=== PATIENT | male | born 1985 | race Caucasian/White ===

== ENCOUNTER 2018-05-03 13:33 | Emergency (ER) | payer MEDICAID ==
[2018-05-03 13:47] VITALS: BP 141/78
--- NOTE | 2018-05-03 14:09 | EDM.PDOC ---
ED HPI GENERAL MEDICAL PROBLEM - General Chief Complaint: General Stated Complaint: THROAT SWELLING Time Seen by Provider: 05/03/18 13:40 Source of Information: Reports: Patient History Limitations: Reports: No Limitations - History of Present Illness INITIAL COMMENTS - FREE TEXT/NARRATIVE: Patient comes into the emergency department with complaints of a sore throat. This been going on for approximately one week. He did have an Upper GI with stretching completed approximately one month ago. Patient states approximately one week ago he started having a sore throat. He denies cough, nausea, vomiting , or fever. He states it feels like razor blades when swallowing. Also states that he has at breath. Denies being around other individuals who have been ill. Onset: Gradual Quality: Reports: Other Severity: Mild Improves with: Reports: None Worsens with: Reports: None Context: Reports: Activity Associated Symptoms: Reports: No Other Symptoms Throat Pain Score (Numeric/FACES): 5 - Related Data Allergies Allergy/AdvReac Type Severity Reaction Status Date / Time morphine Allergy Nausea and Verified 05/03/18 13:47 Vomiting mushroom Allergy Nausea and Verified 05/03/18 13:47 Vomiting Penicillins Allergy Difficulty Verified 05/03/18 13:47 Breathing venom-honey bee Allergy Anaphylactic Verified 05/03/18 13:47 [bee venom (honey bee)] Shock bee stings Allergy Anaphylactic Uncoded 03/08/18 23:28 Shock heroin Allergy Cardiac Uncoded 03/08/18 23:28 Arrest Home Meds: Home Meds Acetaminophen [Tylenol] 650 mg PO Q4H PRN 03/08/18 [History] Albuterol [Ventolin HFA] 1 inhaler INH ASDIRECTED PRN 05/03/18 [History] Omeprazole 1 tab PO BID 05/03/18 [History] Past Medical History HEENT History: Reports: Other (See Below) Other HEENT History: left eye deviation Gastrointestinal History: Reports: Other (See Below) Other Gastrointestinal History: colitis. cancer Neurological History: Reports: Head Trauma, Seizure Psychiatric History: Reports: Bipolar, Psych Hospitalization(s), Schizophrenia Oncologic (Cancer) History: Reports: Colon - Past Surgical History Head Surgeries/Procedures: Reports: None GI Surgical History: Reports: Other (See Below) Other GI Surgeries/Procedures: bowel resection Musculoskeletal Surgical History: Reports: Other (See Below) Oncologic Surgical History: Reports: Other (See Below) Other Oncologic Surgeries/Procedures: bowel resection Dermatological Surgical History: Reports: None Social & Family History - Family History Family Medical History: Noncontributory - Tobacco Use Smoking Status *Q: Current Every Day Smoker Years of Tobacco use: 22 Packs/Tins Daily: 0.5 - Caffeine Use Caffeine Use: Reports: Coffee, Soda - Alcohol Use Days Per Week of Alcohol Use: 7 Number of Drinks Per Day: 2 Total Drinks Per Week: 14 - Recreational Drug Use Recreational Drug Use: No ED ROS GENERAL - Review of Systems Review Of Systems: See Below Constitutional: Reports: No Symptoms HEENT: Reports: No Symptoms Respiratory: Reports: No Symptoms Cardiovascular: Reports: No Symptoms Endocrine: Reports: No Symptoms GI/Abdominal: Reports: No Symptoms : Reports: No Symptoms Musculoskeletal: Reports: No Symptoms Skin: Reports: No Symptoms Neurological: Reports: No Symptoms Psychiatric: Reports: No Symptoms Hematologic/Lymphatic: Reports: No Symptoms Immunologic: Reports: No Symptoms ED EXAM, GENERAL - Physical Exam Exam: See Below Exam Limited By: No Limitations General Appearance: Alert, WD/WN, No Apparent Distress Eye Exam: Bilateral Eye: EOMI, PERRL Ears: Normal External Exam, Normal Canal, Hearing Grossly Normal, Normal TMs Ear Exam: Bilateral Ear: Auricle Normal, Canal Normal, TM normal Nose: Normal Inspection, Normal Mucosa, No Blood Throat/Mouth: Normal Inspection, Normal Lips, Normal Oropharynx, Normal Voice, No Airway Compromise Head: Atraumatic, Normocephalic Neck: Normal Inspection, Supple, Non-Tender, Full Range of Motion Respiratory/Chest: No Respiratory Distress, Lungs Clear, Normal Breath Sounds, No Accessory Muscle Use Cardiovascular: Normal Peripheral Pulses, Regular Rate, Rhythm, No Edema Back Exam: Normal Inspection, Full Range of Motion Extremities: Normal Inspection, Normal Range of Motion, Non-Tender, Normal Capillary Refill Neurological: Alert, Oriented, Normal Cognition, Normal Gait Psychiatric: Normal Affect, Normal Mood Skin Exam: Warm, Dry, Intact, Normal Color, No Rash Course - Vital Signs Last Recorded V/S: Last Vital Signs Temp 36.6 C 05/03/18 13:46 Pulse 90 05/03/18 13:46 Resp 16 05/03/18 13:46 BP 141/78 H 05/03/18 13:46 Pulse Ox 98 05/03/18 13:46 - Orders/Labs/Meds Orders: Active Orders 24 hr Category Date Time Status CULTURE STREP A CONFIRMATION [RM] Stat Lab 05/03/18 14:01 Results STREP SCRN A RAPID W CULT CONF [RM] Stat Lab 05/03/18 14:01 Results Departure - Departure Time of Disposition: 15:30 Disposition: Home, Self-Care 01 Condition: Good Clinical Impression: Sore throat - Discharge Information *PRESCRIPTION DRUG MONITORING PROGRAM REVIEWED*: Not Applicable *COPY OF PRESCRIPTION DRUG MONITORING REPORT IN PATIENT CRIS: Not Applicable Instructions: Sore Throat, [id number] Referrals: PCP,None [Primary Care Provider] - Forms: ED Department Discharge Additional Instructions: 1. rest 2. increase water intake 3. salt water gargle for discomfort 4. Use Tylenol and ibuprofen for pain 5. Activity and diet as tolerated 6. follow up with primary care provider if not better within a week - My Orders Last 24 Hours: My Active Orders 05/03/18 14:01 CULTURE STREP A CONFIRMATION [RM] Stat STREP SCRN A RAPID W CULT CONF [RM] Stat - Assessment/Plan Last 24 Hours: My Active Orders 05/03/18 14:01 CULTURE STREP A CONFIRMATION [RM] Stat STREP SCRN A RAPID W CULT CONF [RM] Stat Assessment:: 1. sore throat Plan: 1. Rapid strep completed 2. Education completed regarding care and follow up 3. Use of Tylenol and ibuprofen as needed for pain and discomfort
== END 2018-05-03 15:09 | disposition home or self-care (01) ==
LOC: VM.ED 13:33
DX: J02.9 Acute pharyngitis, unspecified (principal); F17.210 Nicotine dependence, cigarettes, uncomplicated; Z88.0 Allergy status to penicillin; Z91.030 Bee allergy status; Z88.8 Allergy status to other drugs, medicaments and biological substances; Z88.5 Allergy status to narcotic agent; Z91.018 Allergy to other foods
CPT/HCPCS: 87081; 87880-QW; 99283

== ENCOUNTER 2020-02-20 23:03 | Emergency (ER) | payer SELFPAY ==
[2020-02-20] MEDS ORDERED: Lidocaine 1% 30 ML SDV INJECT ONE (23:06)
[2020-02-20 23:17] VITALS: BP 156/84; PULSE 98
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
[2020-02-20] MEDS ORDERED: Acetaminophen 500 MG Tab PO ONE (23:42)
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
== END 2020-02-21 00:35 | disposition home or self-care (01) ==
LOC: VM.ED 23:03
DX: S09.90XA Unspecified injury of head, initial encounter (principal); S01.81XA Laceration without foreign body of other part of head, initial encounter; Z91.018 Allergy to other foods; Z88.0 Allergy status to penicillin; Z91.030 Bee allergy status; Z88.5 Allergy status to narcotic agent; W22.8XXA Striking against or struck by other objects, initial encounter
CPT/HCPCS: 12013; 70450; 72125; 99283-GF; 99284-25; A9270-GY; J2001

== ENCOUNTER 2020-02-24 20:44 | Emergency (ER) | payer SELFPAY ==
[2020-02-24] MEDS ORDERED: Glucagon,Human Recombinant 1 MG Vial IM ONE (21:04)
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
[2020-02-24 21:54] VITALS: BP 129/80; PULSE 90
== END 2020-02-24 22:20 | disposition short-term general hospital (02) ==
LOC: VM.ED 20:44
DX: T18.128A Food in esophagus causing other injury, initial encounter (principal); Z91.018 Allergy to other foods; Z88.0 Allergy status to penicillin; Z91.030 Bee allergy status; Z88.5 Allergy status to narcotic agent
CPT/HCPCS: 96372; 99284; 99284-GF; J1610

== ENCOUNTER 2020-05-26 07:20 | Emergency (ER) | payer SELFPAY ==
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
[2020-05-26] MEDS ORDERED: Ondansetron 4 MG/2 ML SDV IV ONE (08:21)
[2020-05-26] MEDS ORDERED: Morphine 2 MG/ML SYRINGE IVPUSH ONE (08:21)
[2020-05-26 08:22] LABS: ANION GAP 13.4 mmol/L (10-20); CHLORIDE,CL 102 mmol/L (98-107); SODIUM,NA 138 mmol/L (136-145)
--- NOTE | 2020-05-26 08:22 | CR ---
[id number] RAD/RAD Chest PA or AP 1V EXAM: SINGLE VIEW CHEST. INDICATION: CHEST PAIN COMPARISON: NO PREVIOUS SIMILAR EXAM IS AVAILABLE FINDINGS: The lungs are clear The cardiac silhouette is normal There is a slight scoliosis IMPRESSION: NO ACUTE PROCESS Cortez Guallpa MD 05/26/20 0858 Thank you for allowing us to participate in the care of your patient.
[2020-05-26] MEDS ORDERED: GI Cocktail Oral Solution 30 ML PO ONE (09:08)
[2020-05-26] MEDS ORDERED: Ketorolac 30 MG/ML SDV IVPUSH ONE (09:21)
[2020-05-26] MEDS ORDERED: HYDROmorphone 0.5 MG/0.5 ML Syringe IVPUSH ONE (10:12)
[2020-05-26 11:56] VITALS: BP 110/62; PULSE 73
== END 2020-05-26 11:35 ==
LOC: VM.ED 07:20
DX: R07.1 Chest pain on breathing (principal); J06.9 Acute upper respiratory infection, unspecified; Z88.0 Allergy status to penicillin; Z91.018 Allergy to other foods; Z91.030 Bee allergy status; Z88.5 Allergy status to narcotic agent
CPT/HCPCS: 36415; 71045; 80053; 84484; 85025; 93005; 96374; 96375; 99285; A9270; J1170; J1885; J2270; J2405

== ENCOUNTER 2022-10-18 12:59 | Day surgery (SDC) | payer OTHER ==
[~2022-10-18 12:59] MED LIST: Lactated Ringers 1,000 ML IV SCH; Sodium Chloride 0.9% 10 ML Syringe FLUSH PRN
[2022-10-18] MEDS ORDERED: fentaNYL 100 MCG/2 ML SDV ONE (13:40)
[2022-10-18] MEDS ORDERED: Propofol 200 MG/20 ML SDV ONE (13:41)
[2022-10-18] MEDS ORDERED: Fat Emulsion 250 ML IV ONE (15:19)
[2022-10-18 15:31] VITALS: BP 103/66; PULSE 72
== END 2022-10-18 15:45 | disposition other institution (70) ==
LOC: VM.SDS 12:59
PROVIDERS: ATTEND Family Medicine
DX: K29.80 Duodenitis without bleeding (principal); K29.70 Gastritis, unspecified, without bleeding; K21.9 Gastro-esophageal reflux disease without esophagitis; K44.9 Diaphragmatic hernia without obstruction or gangrene; J44.9 Chronic obstructive pulmonary disease, unspecified; I25.2 Old myocardial infarction; R56.9 Unspecified convulsions; F41.9 Anxiety disorder, unspecified; E16.2 Hypoglycemia, unspecified; F17.210 Nicotine dependence, cigarettes, uncomplicated; Z88.0 Allergy status to penicillin; Z88.6 Allergy status to analgesic agent; Z91.030 Bee allergy status; Z98.890 Other specified postprocedural states; Z79.899 Other long term (current) drug therapy
CPT/HCPCS: 00731; J2704; J3010; J3490; J7120

== ENCOUNTER 2022-11-29 07:37 | Emergency (ER) | payer OTHER ==
[2022-11-29 08:22] LABS: CHLORIDE,CL 104 mmol/L (98-107); SODIUM,NA 142 mmol/L (136-145)
[2022-11-29 08:25] LABS: ANION GAP 14.8 mmol/L (5-15); ESTIMATED GFR 112 mL/min (>=60)
[2022-11-29] MEDS ORDERED: GI Cocktail Oral Solution 30 ML PO ONE (08:35)
[2022-11-29 10:19] VITALS: BP 108/74; PULSE 70
== END 2022-11-29 09:20 ==
LOC: VM.ED 07:37
DX: K21.9 Gastro-esophageal reflux disease without esophagitis (principal); Z91.018 Allergy to other foods; Z88.0 Allergy status to penicillin; Z91.030 Bee allergy status; Z88.5 Allergy status to narcotic agent; Z88.4 Allergy status to anesthetic agent; Z87.891 Personal history of nicotine dependence
CPT/HCPCS: 36415; 71046; 80053; 82150; 82550; 83615; 83690; 84484; 85025; 86140; 99285; A9270